=== PATIENT | female | born 1965 | race Caucasian/White ===

== ENCOUNTER 2021-10-18 16:05 | Inpatient (IN) | payer BC ==
[~2021-10-18] VITALS: Ht 170.1 cm; Wt 72.6 kg
[2021-10-18 16:23] VITALS: BP 99/67
[2021-10-18 17:40] LABS: HEMATOCRIT 50.1 % (37.0-47.0); MEAN CELL VOLUME 90.4 fl (81.0-99.0); MEAN CORPUSCULAR HGB CONC 33.1 g/dl (33.0-37.0); MEAN PLATELET VOLUME 11.6 fl (9.6-12.3); PLATELET COUNT AUTOMATED 338 10*3/uL (130-400); RED BLOOD COUNT 5.54 10*6/uL (4.10-5.10); RED CELL DISTRI WIDTH 13.9 % (0-14.5); WHITE BLOOD COUNT 24.6 10*3/uL (4.8-10.8)
[2021-10-18 17:40] LABS: BILIRUBIN 2+ (Negative); BLOOD 2+ (Negative); CLARITY Cloudy (Clear); COLOR Orange (Yellow); GLUCOSE Negative (Negative); KETONE 1+ (Negative); LEUKO ESTERASE 1+ (Negative); NITRITE Positive (Negative); PH 5.5 (4.5-8.0); SPECIFIC GRAVITY >= 1.030 (1.001-1.030)
[2021-10-18 17:42] LABS: MANUAL DIFF REFLEX YES
[2021-10-18 17:57] LABS: ALKALINE PHOSPHATASE 138 U/L (45-117); BUN 11 mg/dl (7-24); CHLORIDE 101 mmol/L (98-107); LIPASE 139 U/L (73-393); POTASSIUM 3.6 mmol/L (3.5-5.1); SGOT/AST 60 IU/L (3-35); SGPT/ALT 49 U/L (12-78); SODIUM 135 mmol/L (136-145); TOTAL PROTEIN 7.6 gm/dL (6.4-8.2)
[2021-10-18 18:01] LABS: ATYPICAL LYMPHS 1 % (0-0); PLATELET SUFFICIENCY NORMAL (NORMAL); TOTAL CELLS COUNTED 100 #CELLS
[2021-10-18 18:13] LABS: BACTERIA 2+; EPITHELIAL CELLS TNTC; MUCOUS 1+
[2021-10-18 19:55] VITALS: BP 109/57
[2021-10-18 20:00] VITALS: BP 109/57
[2021-10-18] MEDS ORDERED: EFFEXOR XR75 M1 PO (20:38)
[2021-10-18] MEDS ORDERED: ADDERALL 20 MG20 MG PO (20:38)
[2021-10-19] VITALS (10 sets, daily range): BP systolic 98–133; BP diastolic 50–85
[2021-10-19 06:33] LABS: HEMATOCRIT 42.3 % (37.0-47.0); MEAN CELL VOLUME 88.9 fl (81.0-99.0); MEAN CORPUSCULAR HGB 29.2 pg (27.0-31.0); MEAN CORPUSCULAR HGB CONC 32.9 g/dl (33.0-37.0); MEAN PLATELET VOLUME 11.9 fl (9.6-12.3); PLATELET COUNT AUTOMATED 256 10*3/uL (130-400); RED BLOOD COUNT 4.76 10*6/uL (4.10-5.10); RED CELL DISTRI WIDTH 13.8 % (0-14.5); WHITE BLOOD COUNT 17.6 10*3/uL (4.8-10.8)
[2021-10-19 06:41] LABS: MANUAL DIFF REFLEX YES
[2021-10-19 06:50] LABS: BUN 10 mg/dl (7-24); CHLORIDE 105 mmol/L (98-107); CREATININE 0.71 mg/dL (0.55-1.02); POTASSIUM 3.5 mmol/L (3.5-5.1); SODIUM 139 mmol/L (136-145)
[2021-10-19 08:25] LABS: BASOPHILS 1 % (0-1); PLATELET SUFFICIENCY NORMAL (NORMAL); TOTAL CELLS COUNTED 100 #CELLS
[2021-10-20] VITALS: BP 128/70
[2021-10-20 08:00] VITALS: BP 110/61
[2021-10-20 12:00] VITALS: BP 107/50
[2021-10-20 16:00] VITALS: BP 105/51
[2021-10-20 20:00] VITALS: BP 98/50
[2021-10-21] VITALS: BP 107/54
[2021-10-21 06:27] LABS: BUN 11 mg/dl (7-24); CHLORIDE 110 mmol/L (98-107); CREATININE 0.64 mg/dL (0.55-1.02); SODIUM 144 mmol/L (136-145)
[2021-10-21 06:59] LABS: HEMATOCRIT 35.5 % (37.0-47.0); MEAN CORPUSCULAR HGB 29.7 pg (27.0-31.0); MEAN CORPUSCULAR HGB CONC 32.1 g/dl (33.0-37.0); MEAN PLATELET VOLUME 12.5 fl (9.6-12.3); PLATELET COUNT AUTOMATED 274 10*3/uL (130-400); RED BLOOD COUNT 3.84 10*6/uL (4.10-5.10); RED CELL DISTRI WIDTH 14.6 % (0-14.5); WHITE BLOOD COUNT 18.5 10*3/uL (4.8-10.8)
[2021-10-21 07:09] LABS: MANUAL DIFF REFLEX YES; MEAN CELL VOLUME 92.4 fl (81.0-99.0)
[2021-10-21 08:00] VITALS: BP 93/73
[2021-10-21 08:08] LABS: TOTAL CELLS COUNTED 100 #CELLS
[2021-10-21 08:09] LABS: POLYCHROMASIA SLIGHT
[2021-10-21 08:10] LABS: PLATELET SUFFICIENCY NORMAL (NORMAL)
[2021-10-21] MEDS ORDERED: Protonix IV (10:25)
[2021-10-21] MEDS ORDERED: LEVOFLOXACIN500 MG PO (10:30)
[2021-10-21 12:00] VITALS: BP 105/58
[2021-10-21 15:59] VITALS: BP 108/50
[2021-10-21 17:16] LABS: BILIRUBIN Negative (Negative); BLOOD 2+ (Negative); CLARITY Clear (Clear); COLOR Yellow (Yellow); GLUCOSE Negative (Negative); KETONE Negative (Negative); LEUKO ESTERASE Trace (Negative); NITRITE Negative (Negative)
[2021-10-21 17:25] LABS: BACTERIA 1+; EPITHELIAL CELLS TNTC
== END 2021-10-21 18:00 | disposition home or self-care (01) | DRG 854 ==
LOC: ED 16:05 → EDHOLD 18:21 → 5E 18:21
PROVIDERS: Emergency Medicine; ADMIT Internal Medicine; ATTEND Internal Medicine
PROC: 0FT44ZZ Resection of Gallbladder, Percutaneous Endoscopic Approach (ICD-10-PCS; principal; 2021-10-19)
PROC: 3E0T3BZ Introduction of Anesthetic Agent into Peripheral Nerves and Plexi, Percutaneous Approach (ICD-10-PCS; 2021-10-19)
PROC: 3E0T33Z Introduction of Anti-inflammatory into Peripheral Nerves and Plexi, Percutaneous Approach (ICD-10-PCS; 2021-10-19)
DX: A41.9 Sepsis, unspecified organism (principal); N30.01 Acute cystitis with hematuria; K80.01 Calculus of gallbladder with acute cholecystitis with obstruction; R65.20 Severe sepsis without septic shock; R91.8 Other nonspecific abnormal finding of lung field; Z88.8 Allergy status to other drugs, medicaments and biological substances